=== PATIENT | male | born 1990 | race Caucasian/White ===

== ENCOUNTER 2022-09-06 15:12 | Observation (INO) | payer OTHER ==
--- NOTE | 2022-09-06 17:53 | ED ---
General Adult HPI - General Chief complaint: Urogenital Stated complaint: transfer-kidney stone Time Seen by Provider: 09/06/22 15:57 Source: patient, family, RN/MD (Transferring physician), RN notes reviewed Mode of arrival: ambulatory Limitations: no limitations - History of Present Illness Initial comments: Patient is a pleasant 31-year-old male presenting to the emergency department with concerns with right flank pain. Patient has been having symptoms for the past couple of weeks. Patient did go to a hospital in [place] and was diagnosed with kidney stone. Patient does have history of kidney stones with similar symptoms. Patient has been having continuing symptoms for the past 2 weeks. Patient did go to [place] and found to have worsening renal function. Creatinine of 2.0, previous was 1.3, 2 weeks ago. Patient has 3 mm stone with mild [place] right UVJ. No fevers. Patient did have 3 doses of pain medication at [place]. Patient was given Percocet and [place] at home. - Related Data Home Medications Medication Instructions Recorded Confirmed Fenofibrate,Micronized 134 mg PO DAILY 09/06/22 09/06/22 [Fenofibrate] HYDROcodone/APAP 5-325MG [[place] 1 tab PO Q6H PRN 09/06/22 09/06/22 5-325] Ondansetron Odt [Zofran Odt] 8 mg PO TID PRN 09/06/22 09/06/22 Pantoprazole Sodium [Protonix] 40 mg PO DAILY 09/06/22 09/06/22 Rosuvastatin [Crestor] 20 mg PO DAILY 09/06/22 09/06/22 Tamsulosin HCl [Flomax] 0.4 mg PO DAILY 09/06/22 09/06/22 Tirzepatide [Mounjaro] 15 mg SQ TH 09/06/22 09/06/22 allopurinoL 100 mg PO DAILY 09/06/22 09/06/22 buPROPion HCL [Wellbutrin XL] 150 mg PO DAILY 09/06/22 09/06/22 lisinopriL [Prinivil] 20 mg PO DAILY 09/06/22 09/06/22 Allergies Allergy/AdvReac Type Severity Reaction Status Date / Time cefaclor [From [facility]] Allergy Rash/Hives Verified 09/06/22 18:05 fentanyl AdvReac Confusion Verified 09/06/22 18:05 Review of Systems ROS Statement: Those systems with pertinent positive or pertinent negative responses have been documented in the HPI. ROS Other: All systems not noted in ROS Statement are negative. Constitutional: Denies: fever Eyes: Denies: eye pain ENT: Denies: ear pain Respiratory: Denies: cough Cardiovascular: Denies: chest pain Endocrine: Denies: fatigue Gastrointestinal: Reports: as per HPI, abdominal pain, nausea. Denies: vomiting Genitourinary: Denies: dysuria Skin: Denies: rash Neurological: Denies: weakness Past Medical History Past Medical History: Diabetes Mellitus, Hyperlipidemia, Hypertension Additional Past Medical History / Comment(s): gout History of Any Multi-Drug Resistant Organisms: None Reported Past Surgical History: Cholecystectomy Past Psychological History: No Psychological Hx Reported, Anxiety Smoking Status: Never smoker Past Alcohol Use History: None Reported Past Drug Use History: None Reported General Exam Limitations: no limitations General appearance: alert, in no apparent distress Head exam: Present: normocephalic Eye exam: Present: normal appearance Neck exam: Present: normal inspection Respiratory exam: Present: normal lung sounds bilaterally Cardiovascular Exam: Present: regular rate, normal rhythm Expanded Peripheral pulses: 2+: Posterior Tibialis (R), Posterior Tibialis (L), Dorsalis Pedis (R), Dorsalis Pedis (L) GI/Abdominal exam: Present: soft, tenderness (Mild tenderness right flank). Absent: distended Extremities exam: Present: normal inspection Back exam: Present: CVA tenderness (R) Neurological exam: Present: alert Psychiatric exam: Present: normal affect, normal mood Skin exam: Present: normal color Course Vital Signs 09/06/22 09/06/22 15:32 16:44 Temperature 98.4 F 97.5 F L Pulse Rate 88 87 Respiratory 18 18 Rate Blood Pressure 108/67 119/79 O2 Sat by Pulse 98 98 Oximetry Medical Decision Making - Medical Decision Making Was pt. sent in by a medical professional or institution (, PA, TRANSIT PLANNER, urgent care, hospital, or detention...) When possible be specific @ -Patient was sent from [facility] Did you speak to anyone other than the patient for history (EMS, parent, family, police, friend...)? What history was obtained from this source @ - is present and helps provide history including patient symptoms for the last couple weeks Did you review nursing and triage notes (agree or disagree)? Why? @ -I reviewed and agree with nursing and triage notes Were old charts reviewed (outside hosp., previous admission, EMS record, old EKG, old radiological studies, urgent care reports/EKG's, detention records)? Report findings @ -To transfer papers from [facility] Differential Diagnosis (chest pain, altered mental status, abdominal pain women, abdominal pain men, vaginal bleeding, weakness, fever, dyspnea, syncope, headache, dizziness, GI bleed, back pain, seizure, CVA, palpatations, mental health, musculoskeletal)? @ -Differential Abdominal Pain Men: Appendicitis, cholecystitis, diverticulosis, ischemic bowel, pancreatitis, hepatitis, UTI, gastroenteritis, AAA, incarcerated hernia, bowel obstruction, constipation, inflammatory bowel, hepatitis, peptic ulcer disease, splenic infarction, perforated viscus, testicular torsion, this is not meant to be an all-inclusive list EKG interpreted by me (3pts min.). @ -As above X-rays interpreted by me (1pt min.). @ -None done CT interpreted by me (1pt min.). @ -None done U/S interpreted by me (1pt. min.). @ -None done What testing was considered but not performed or refused? (CT, X-rays, U/S, labs)? Why? @ -None What meds were considered but not given or refused? Why? @ -None Did you discuss the management of the patient with other professionals (professionals i.e. , PA, TRANSIT PLANNER, lab, RT, psych nurse, social human services assistants, coffin maker, teacher, humane officer, case managers)? Give summary @ -Case discussed with Dr. Cui who will admit patient and recommends into after midnight and KUB Was smoking cessation discussed for >3mins.? @ -No Was critical care preformed (if so, how long)? @ -No Were there social determinants of health that impacted care today? How? (Homelessness, low income, unemployed, alcoholism, drug addiction, transportation, low edu. Level, literacy, decrease access to med. care, longterm, rehab)? @ -No Was there de-escalation of care discussed even if they declined (Discuss DNR or withdrawal of care, Hospice)? DNR status @ -No What co-morbidities impacted this encounter? (DM, HTN, Smoking, COPD, CAD, Cancer, CVA, ARF, Chemo, Hep., AIDS, mental health diagnosis, sleep apnea, morbid obesity)? @ -None Was patient admitted / discharged? Hospital course, mention meds given and route, prescriptions, significant lab abnormalities, going to OR and other pertinent info. @ -Patient reevaluated and updated. Patient will be admitted to urology for probable procedure tomorrow. Undiagnosed new problem with uncertain prognosis? @ -No Drug Therapy requiring intensive monitoring for toxicity (Heparin, Nitro, Insulin, Cardizem)? @ -No Were any procedures done? @ -No Diagnosis/symptom? @ -Ureteral Acute, or Chronic, or Acute on Chronic? @ -Acute Uncomplicated (without systemic symptoms) or Complicated (systemic symptoms)? @ -default Side effects of treatment? @ -No Exacerbation, Progression, or Severe Exacerbation? @ -No Poses a threat to life or bodily function? How? (Chest pain, [place], [place], pneumonia, PE, COPD, DKA, ARF, appy, cholecystitis, CVA, Diverticulitis, Homicidal, Suicidal, threat to staff... and all critical care pts) @ -No Disposition Clinical Impression: Ureterolithiasis Disposition: ADMITTED IP TO THIS HOSP Is patient prescribed a controlled substance at d/c from ED?: No Referrals: Nonstaff,Physician [Primary Care Provider] - 1-2 days Time of Disposition: 18:13
[2022-09-06] MEDS ORDERED: ONDANSETRON 4 MG/2 ML VIAL IVP PRN (18:24)
[2022-09-06] MEDS ORDERED: ACETAMINOPHEN TAB 325 MG TAB PO PRN (18:24)
[2022-09-06] MEDS ORDERED: NALOXONE 0.4 MG/ML 1 ML VIAL IV PRN (18:24)
[2022-09-06] MEDS: SODIUM CHLORIDE 0.9% 1,000 ML IV SCH (18:53)
--- NOTE | 2022-09-06 19:41 | XR ---
EXAMINATION TYPE: XR abdomen 1V DATE OF EXAM: 09/06/2022 7:01 PM INDICATION: Patient age:Male; 31 years old; Reason for study: Ureterolithiasis; [facility]. COMPARISON: None. TECHNIQUE: One radiographic view of the abdomen was obtained. FINDINGS: The bowel gas pattern is nonspecific without dilated loops of small or large bowel. There i s no evidence for pneumoperitoneum. The osseous structures are intact. No abnormal calcifications a re present. Surgical clips are present in the right upper quadrant. Fecal material and gas are demons trated throughout the colon and rectum. IMPRESSION: Nonspecific bowel gas pattern without radiographic evidence for acute process or abnormal calcificati ons.
[2022-09-06] MEDS: HYDROmorphone 0.5 MG/0.5 ML SYRINGE IVP PRN (21:26)
[2022-09-07] MEDS: HYDROmorphone 1 MG/ML 1 ML SYRINGE IVP PRN (01:02)
[2022-09-07] MEDS: SODIUM CHLORIDE 0.9% 1,000 ML IV SCH ×3 (02:49→17:24)
[2022-09-07 06:01] LABS: Glucose,Whole Blood 98 mg/dL (70-110)
--- NOTE | 2022-09-07 08:04 | XR ---
EXAMINATION TYPE: XR abdomen 1V DATE OF EXAM: 09/07/2022 COMPARISON: NONE HISTORY: Pain TECHNIQUE: Single supine KUB image of the abdomen is obtained FINDINGS: Small bowel demonstrates no evidence for dilatation or air fluid levels. Gas and fecal material is seen in non-distended colon. No convincing evidence for pneumoperitoneum. No unusual calcifications. The lung bases are clear. The osseous structures are intact. IMPRESSION: 1. Overall nonobstructive bowel gas pattern.
--- NOTE | 2022-09-07 08:05 | P.GSHP ---
History of Present Illness H&P Date: 09/07/22 31-year-old gentleman from [place] with a history of stones. Approximately 2 weeks ago he began with intermittent right back pain. He saw his primary care in [place] and identified hematuria. Computed tomography scan showed a 3 mm distal ureteral stone. He had a vacation scheduled here in [place] and in route he ended up in the emergency room in [place].. He felt better. He came to [place] and ended up in the emergency room in [facility] and was transferred here. A KUB suggested a distal right ureteral stone. The patient is having intermittent pain. He has no fever or chills. He has had previous stones but none for several years. He did have shockwave lithotripsy. He does not know the type of stone. A KUB this morning shows a calcification consistent with a right distal ureteral stone. - Constitutional Constitutional: Denies chills, Denies fever - EENT Eyes: denies blurred vision, denies pain Ears, nose, mouth and throat: Denies headache, Denies sore throat - Cardiovascular Cardiovascular: Denies chest pain, Denies shortness of breath - Respiratory Respiratory: Denies cough, Denies 7 - Gastrointestinal Gastrointestinal: Denies abdominal pain, Denies diarrhea, Denies nausea, Denies vomiting - Genitourinary (Female) Genitourinary: Denies dysuria, Denies hematuria - Genitourinary (Male) Genitourinary: Denies dysuria, Denies hematuria - Musculoskeletal Musculoskeletal: Denies myalgias - Integumentary Integumentary: Denies pruritus, Denies rash - Neurological Neurological: Denies numbness, Denies weakness - Psychiatric Psychiatric: Denies anxiety, Denies depression - Endocrine Endocrine: Denies fatigue, Denies weight change Past Medical History Past Medical History: Diabetes Mellitus, Hyperlipidemia, Hypertension Additional Past Medical History / Comment(s): gout History of Any Multi-Drug Resistant Organisms: None Reported Past Surgical History: Cholecystectomy Past Anesthesia/Blood Transfusion Reactions: No Reported Reaction Past Psychological History: No Psychological Hx Reported, Anxiety Smoking Status: Never smoker Past Alcohol Use History: None Reported Past Drug Use History: None Reported Medications and Allergies Home Medications Medication Instructions Recorded Confirmed Type Fenofibrate,Micronized 134 mg PO DAILY 09/06/22 09/06/22 History [Fenofibrate] HYDROcodone/APAP 5-325MG [[place] 1 tab PO Q6H PRN 09/06/22 09/06/22 History 5-325] Ondansetron Odt [Zofran Odt] 8 mg PO TID PRN 09/06/22 09/06/22 History Pantoprazole Sodium [Protonix] 40 mg PO DAILY 09/06/22 09/06/22 History Rosuvastatin [Crestor] 20 mg PO DAILY 09/06/22 09/06/22 History Tamsulosin HCl [Flomax] 0.4 mg PO DAILY 09/06/22 09/06/22 History Tirzepatide [Mounjaro] 15 mg SQ TH 09/06/22 09/06/22 History allopurinoL 100 mg PO DAILY 09/06/22 09/06/22 History buPROPion HCL [Wellbutrin XL] 150 mg PO DAILY 09/06/22 09/06/22 History lisinopriL [Prinivil] 20 mg PO DAILY 09/06/22 09/06/22 History Allergies Allergy/AdvReac Type Severity Reaction Status Date / Time cefaclor [From [facility]] Allergy Rash/Hives Verified 09/06/22 18:05 fentanyl AdvReac Confusion Verified 09/06/22 18:05 Surgical - Exam Vital Signs Temp Pulse Resp BP Pulse Ox 98.4 F 88 18 108/67 98 09/06/22 15:32 09/06/22 15:32 09/06/22 15:32 09/06/22 15:32 09/06/22 15:32 - General well developed, well nourished, no distress - Eyes normal ocular movement, no icteric - ENT no hearing loss, no congestion - Neck no masses, trachea midline - Respiratory normal respiratory effort, clear to auscultation - Abdomen Abdomen: soft, non tender, no guarding, no rigid, no rebound - Integumentary no rash, no abnormal pigmentation - Neurologic no disoriented, no combative - Psychiatric oriented to time, oriented to person, oriented to place, speech is normal, memory intact Results - Imaging Abdominal x-ray: report reviewed, image reviewed CT scan - abdomen: report reviewed CT scan - pelvis: report reviewed Assessment and Plan Assessment: Impression: Distal ureteral calculus right with colic Recommendations: We will see if he can pass this today with IV fluids and ambulation. If not tomorrow he will undergo a right ureteroscopy with laser lithotripsy
[2022-09-07] MEDS: PANTOPRAZOLE 40 MG/10 ML VIAL IV SCH (08:25)
[2022-09-07 08:41] LABS: BUN/Creat Ratio 12.86 Ratio (12.00-20.00); Calcium 8.4 mg/dL (8.7-10.3); Carbon Dioxide 24.2 mmol/L (21.6-31.8); Chloride 110 mmol/L (96-109); Glucose 108 mg/dL (70-110); Sodium 143 mmol/L (135-145)
[2022-09-07 09:33] LABS: Basophils # (A) 0.04 X 10*3/uL (0.00-0.10); Basophils % (A) 0.5 %; Eosinophils # (A) 0.12 X 10*3/uL (0.04-0.35); Eosinophils % (A) 1.6 %; HCT 41.2 % (39.6-50.0); HGB 14.2 d/dL (12.0-15.0); Lymphocytes # (A) 1.76 X 10*3/uL (0.90-5.00); Lymphocytes % (A) 23.5 %; MCH 28.4 pg (27.0-32.0); MCHC 34.5 d/dL (32.0-37.0); MCV 82.4 FL (80.0-97.0); Mean Platelet Volume 11.2 FL (9.5-12.2); Monocytes % (A) 9.4 %; NRBC Per 100 WBC 0 X 10*3/uL (0.00-0.01); Neutrophils # (A) 4.83 X 10*3/uL (1.80-7.70); Neutrophils % (A) 64.6 %; Platelet Count 200 X 10*3/uL (140-440); RDW 12.7 % (11.5-14.5); WBC 7.48 X 10*3/uL (4.50-10.00)
[2022-09-07 11:46] LABS: Glucose,Whole Blood 106 mg/dL (70-110)
[2022-09-07] MEDS: HYDROmorphone 0.5 MG/0.5 ML SYRINGE IVP PRN ×2 (12:59→18:39)
[2022-09-07] MEDS: bisacodyL 5 MG TABLET.DR PO PRN (14:49)
[2022-09-07 17:06] LABS: Glucose,Whole Blood 145 mg/dL (70-110)
[2022-09-07] MEDS: KETOROLAC 15 MG/ML 1 ML VIAL IVP PRN (20:46)
[2022-09-07 21:55] LABS: Glucose,Whole Blood 131 mg/dL (70-110)
[2022-09-08] MEDS: SODIUM CHLORIDE 0.9% 1,000 ML IV SCH ×3 (01:42→23:52)
[2022-09-08] MEDS: HYDROmorphone 0.5 MG/0.5 ML SYRINGE IVP PRN ×2 (04:15→18:14)
[2022-09-08 05:55] LABS: Glucose,Whole Blood 122 mg/dL (70-110)
[2022-09-08] MEDS: PANTOPRAZOLE 40 MG/10 ML VIAL IV SCH (07:50)
[2022-09-08] MEDS: KETOROLAC 15 MG/ML 1 ML VIAL IVP PRN ×2 (07:55→19:16)
[2022-09-08 11:33] LABS: Glucose,Whole Blood 103 mg/dL (70-110)
[2022-09-08] MEDS ORDERED: IV FLUID CONTINUATION 1,000 ML IV ONE (15:31)
[2022-09-08 15:35] LABS: Glucose,Whole Blood 80 mg/dL (70-110)
[2022-09-08] MEDS ORDERED: ONDANSETRON 4 MG/2 ML VIAL IVP ONE (15:36)
[2022-09-08] MEDS ORDERED: DEXAMETHASONE SOD PHOSPHATE 4 MG/ML 1 ML VIAL IVP ONE (15:37)
[2022-09-08] MEDS ORDERED: SCOPOLAMINE 1 MG/72 HR PATCH TRANSDERM ONE (15:42)
[2022-09-08] MEDS ORDERED: CIPROFLOXACIN/DEXTROSE PMX 400 MG in DEXTROSE/WATER 1 200ML.BAG IVPB STA (16:33)
[2022-09-08] MEDS ORDERED: MIDAZOLAM 2 MG/2 ML VIAL ONE (16:41)
[2022-09-08] MEDS ORDERED: fentaNYL (PF) 50 MCG/ML 2 ML AMP ONE (16:41)
[2022-09-08] MEDS ORDERED: LIDOCAINE 2% INJ 20 MG/ML (2 ML VIAL) ONE (16:41)
[2022-09-08] MEDS ORDERED: PROPOFOL 10 MG/ML 20 ML VIAL IV ONE (16:41)
[2022-09-08] MEDS ORDERED: SODIUM CHLORIDE 0.9% 1,000 ML IV ONE (17:08)
--- NOTE | 2022-09-08 17:47 | P.DS ---
Providers Date of admission: 09/06/22 18:24 Attending physician: Kahlil Costello Primary care physician: Physician Nonstaff Hospital Course: This is a 31-year-old male with history of a 3 mm right-sided distal stone. Patient was admitted to the hospital for intractable pain. Patient was taken to the OR on September 08 for right-sided ureteroscopy with holmium laser and stent insertion. Please see op note dated September 08 for surgery detail. Patient was discharged home following the surgery. At time of discharge he was tolerating a diet, and ambulating and pain was controlled. He will follow-up with his urologist in 1 week for stent removal, his stent was left on a string Plan - Discharge Summary Discharge Rx Participant: Yes New Discharge Prescriptions: No Action Tirzepatide [Mounjaro] 15 mg SQ TH Fenofibrate,Micronized [Fenofibrate] 134 mg PO DAILY allopurinoL 100 mg PO DAILY Ondansetron Odt [Zofran Odt] 8 mg PO TID PRN PRN Reason: Nausea Tamsulosin HCl [Flomax] 0.4 mg PO DAILY Pantoprazole Sodium [Protonix] 40 mg PO DAILY lisinopriL [Prinivil] 20 mg PO DAILY Rosuvastatin [Crestor] 20 mg PO DAILY HYDROcodone/APAP 5-325MG [[place] 5-325] 1 tab PO Q6H PRN PRN Reason: Pain buPROPion HCL [Wellbutrin XL] 150 mg PO DAILY Discharge Medication List Fenofibrate,Micronized [Fenofibrate] 134 mg PO DAILY 09/06/22 [History] HYDROcodone/APAP 5-325MG [[place] 5-325] 1 tab PO Q6H PRN 09/06/22 [History] Ondansetron Odt [Zofran Odt] 8 mg PO TID PRN 09/06/22 [History] Pantoprazole Sodium [Protonix] 40 mg PO DAILY 09/06/22 [History] Rosuvastatin [Crestor] 20 mg PO DAILY 09/06/22 [History] Tamsulosin HCl [Flomax] 0.4 mg PO DAILY 09/06/22 [History] Tirzepatide [Mounjaro] 15 mg SQ TH 09/06/22 [History] allopurinoL 100 mg PO DAILY 09/06/22 [History] buPROPion HCL [Wellbutrin XL] 150 mg PO DAILY 09/06/22 [History] lisinopriL [Prinivil] 20 mg PO DAILY 09/06/22 [History] Follow up Appointment(s)/Referral(s): Nonstaff,Physician [Primary Care Provider] - 1-2 days Patient Instructions/Handouts: Kidney Stones (ED) Discharge Disposition: HOME SELF-CARE
--- NOTE | 2022-09-08 17:51 | P.OP ---
Date of Procedure: 09/08/22 Preoperative Diagnosis: right Ureteral stone Postoperative Diagnosis: Same Procedure(s) Performed: Cystoscopy, right ureteroscopy, holmium laser lithotripsy, stone basketing ureteral balloon dilation and stent insertion Implants: 4.8-[place] by 24 cm stent in the right ureter left on a string Anesthesia: ISIDORO Surgeon: Joseph Gaytan Estimated Blood Loss (ml): 1 Pathology: other (right ureteral stone) Condition: stable Disposition: PACU Indications for Procedure: This is a 31-year-old male with history of a 3 mm right-sided distal ureteral stone area he's been having intractable pain and has required multiple ER presentation secondary to his stone. Option of right-sided ureteroscopy with holmium laser was discussed. Risk, and benefit and rationale of doing surgery was discussed with him in details Operative Findings: Right distal stone, narrowed UVJ Description of Procedure: Patient brought to the operating room, general anesthesia was induced. He was prepped and draped in sterile fashion a placement dorsal lithotomy position. Cystoscopy fitted with 21-[place] sheath was inserted per urethra, cystoscopy was performed which showed no abnormality within the bladder. A semirigid urete roscope was inserted per urethra, I attempted to pass the ureteroscope past the UVJ but patient had narrowing in the UVJ. At this time a sensor wire was advanced through the ureteroscope and the ureteroscope was withdrawn with the wire in place. Next a 15-[place] ureteral balloon dilator was passed over the wire, and under fluoroscopy and distal ureter was dilated. At this time a semirigid ureteroscope was reinserted per urethra and advanced up the ureter. The stone was encountered in the distal ureter. Using the holmium laser the stone was fragmented. fragments were removed using the stone basket. At this time the ureteroscope was advanced into the proximal ureter which showed no additional stones. Pullback ureteroscopy was performed which showed no injury to the ureter or any ureteral stones. Of note patient did have edema at the site of the stone. As the ureteroscope was withdrawn, a sensor wire was advanced through. Next a ureteral stent was passed over the wire, the proximal curl was visualized on fluoroscopy and the distal curl was visualized using the cystoscope. The bladder was emptied at the end of the case. Patient tolerated procedure well was taken recovery in stable condition. the stent was left on a string and taped to his penis
[2022-09-08 18:03] LABS: Glucose,Whole Blood 101 mg/dL (70-110)
--- NOTE | 2022-09-08 18:21 | FL ---
Intraoperative/procedural fluoroscopic services were provided. Total fluoroscopy time is 24 seconds w ith a total of 1 submitted images to PACS. Please see the operative/procedural note for further detai ls. DAP: [id number]
[2022-09-08] MEDS ORDERED: HYDROmorphone 0.5 MG/0.5 ML SYRINGE IVP ONE (18:30)
[2022-09-08 21:10] LABS: Glucose,Whole Blood 133 mg/dL (70-110)
[2022-09-08] MEDS: HYDROmorphone 1 MG/ML 1 ML SYRINGE IVP PRN ×2 (21:18→23:52)
[2022-09-09] MEDS: KETOROLAC 15 MG/ML 1 ML VIAL IVP PRN ×2 (01:47→07:48)
[2022-09-09 04:05] VITALS: RESP 16
[2022-09-09] MEDS: bisacodyL 5 MG TABLET.DR PO PRN (04:17)
[2022-09-09] MEDS: HYDROmorphone 1 MG/ML 1 ML SYRINGE IVP PRN (04:17)
[2022-09-09] MEDS: SODIUM CHLORIDE 0.9% 1,000 ML IV SCH ×2 (05:47→08:48)
[2022-09-09 06:17] LABS: Glucose,Whole Blood 110 mg/dL (70-110)
[2022-09-09 08:29] VITALS: BP 114/73; PULSE 72; TEMP 98
[2022-09-09] MEDS: PANTOPRAZOLE 40 MG/10 ML VIAL IV SCH (09:10)
== END 2022-09-09 10:20 | disposition home or self-care (01) ==
LOC: EC 15:12 → 6NMEDSUR 18:24
PROVIDERS: ADMIT Urology; ATTEND Urology
DX: N20.2 Calculus of kidney with calculus of ureter (principal); E11.9 Type 2 diabetes mellitus without complications; E78.5 Hyperlipidemia, unspecified; I10 Essential (primary) hypertension; F41.9 Anxiety disorder, unspecified; M10.9 Gout, unspecified; Z90.49 Acquired absence of other specified parts of digestive tract; Z87.442 Personal history of urinary calculi; Z79.899 Other long term (current) drug therapy; Z88.8 Allergy status to other drugs, medicaments and biological substances
CPT/HCPCS: 96376 ×3; 96361 ×2; 96374; 96375 ×2; 99284; 80048; 85025; 82365; 74018 ×2; 52352; 52332; G0378 ×4; C2625; C1769; J1100; J2405 ×2; J0744; J1170 ×6; J1885 ×3; C9113 ×3